=== PATIENT | male | born 1940 | race Caucasian/White ===

== ENCOUNTER 2019-09-19 10:18 | Outpatient (CLI) | payer MEDICARE, SELFPAY ==
--- NOTE | 2019-09-19 11:16 | ECG_ITS ---
Measurements Intervals [place] Rate: 90 P: 43 WV: 129 QRS: -8 QRSD: 137 T: 12 QT: 395 QTc: 484 SINUS RHYTHM RIGHT BUNDLE BRANCH BLOCK [120+ ms QRS DURATION, UPRIGHT V1, 40+ ms S IN I/aVL/V4/V5/V6] MINIMAL VOLTAGE CRITERIA FOR LVH, CONSIDER NORMAL VARIANT [MEETS CRITERIA IN ONE OF: R(aVL), S(V1), R(V5), R(V5/V6)+S(V1)] Compared to ECG 04/19/2019 14:12:57 No significant changes Electronically Signed On 09-19-2019 17:28:46 COMPLIANCE ANALYST by Kody Medley M.D. [id number]
[2019-09-19 11:23] LABS: Basophils % 0.2 %; Eosinophils # 0.1 10^3/uL (0.0-0.8); Eosinophils % 0.8 %; Hematocrit 42.6 % (42.0-52.0); Hemoglobin 13.3 g/dL (11.7-16.6); Lymphocytes # 1.1 10^3/uL (0.8-4.8); Lymphocytes % 17.7 %; Mean Corpuscular HGB Conc 31.2 g/dL (30.0-36.0); Mean Corpuscular Hemoglobin 29.3 pg (28.0-34.0); Mean Corpuscular Volume 93.8 fL (80-94); Mean Platelet Volume 10.6 fL (7.4-10.4); Monocytes # 0.4 10^3/uL (0.2-0.9); Monocytes % 6.7 %; Neutrophils # 4.7 10^3/uL (1.8-7.7); Neutrophils % 74.3 %; Nucleated Red Blood Cells % 0 %; Platelet Count 213 10^3/cmm (130-400); Red Blood Count 4.54 10^6/uL (4.1-5.3); White Blood Count 6.3 10^3/uL (4.0-10.0)
== END 2019-09-19 10:19 | disposition home or self-care (01) ==
LOC: RT 10:25
PROVIDERS: Visit Provider Specialist
DX: Z01.810 Encounter for preprocedural cardiovascular examination (principal); I45.10 Unspecified right bundle-branch block
CPT/HCPCS: 36415; 85025; 93005

== ENCOUNTER 2019-10-06 10:26 | Outpatient (REF) | payer MEDICARE, SELFPAY | END 2019-10-06 10:27 | disposition home or self-care (01) | LOC: LAB 10:26 | PROVIDERS: Visit Provider Specialist | DX: Z76.89 Persons encountering health services in other specified circumstances (principal) ==

== ENCOUNTER 2020-01-16 13:13 | Emergency (ER) | payer MEDICARE, SELFPAY ==
[2020-01-16] VITALS (7 sets, daily range): BP systolic 94–155; BP diastolic 57–94; PULSE 85–103; RESP 14–22; TEMP 36.6; O2SAT 97–98; BMI 21.5
--- NOTE | 2020-01-16 13:22 | XR_ITS ---
WS: [id number] Portable AP upright chest, 01/16/2020 Clinical Data: weakness Comparison: PA chest, 10/07/2011. Findings: No nodules, masses or effusions are seen. The heart is normal. The pulmonary vascularity is not increased. No pneumonia or pneumothorax is seen. The thoracic aorta shows tortuosity. XR/XR chest 1V portable [id number] Impression: Atherosclerosis.
--- NOTE | 2020-01-16 13:23 | ECG_ITS ---
Measurements Intervals [place] Rate: 97 P: 36 TN: 152 QRS: -12 QRSD: 83 T: 31 QT: 350 QTc: 446 SINUS RHYTHM MINIMAL VOLTAGE CRITERIA FOR LVH, CONSIDER NORMAL VARIANT NONSPECIFIC T-WAVE ABNORMALITY Compared to ECG 09/19/2019 11:18:25 T-wave abnormality now present Right bundle-branch block no longer present Electronically Signed On 01-16-2020 19:42:41 CDT by Laura Mancia M.D. [id number]
[2020-01-16 13:41] LABS: Basophils % 0.2 %; Eosinophils # 0.1 10^3/uL (0.0-0.8); Eosinophils % 1.2 %; Hematocrit 40.5 % (42.0-52.0); Hemoglobin 12.9 g/dL (11.7-16.6); Lymphocytes # 0.8 10^3/uL (0.8-4.8); Lymphocytes % 13.9 %; Mean Corpuscular HGB Conc 31.9 g/dL (30.0-36.0); Mean Corpuscular Hemoglobin 29.3 pg (28.0-34.0); Mean Corpuscular Volume 91.8 fL (80-94); Monocytes # 0.4 10^3/uL (0.2-0.9); Monocytes % 7.4 %; Neutrophils # 4.4 10^3/uL (1.8-7.7); Neutrophils % 77.1 %; Nucleated Red Blood Cells % 0 %; Platelet Count 197 10^3/cmm (130-400); Red Blood Count 4.41 10^6/uL (4.1-5.3); Red Cell Distribution Width 12.9 % (12.1-15.1); White Blood Count 5.7 10^3/uL (4.0-10.0)
[2020-01-16] MEDS: sodium chloride 0.9% 500 ML 999 ML IV (13:52)
[2020-01-16 13:59] LABS: Alanine Aminotransferase 13 U/L (0-41); Albumin Level 4.4 g/dL (3.5-5.2); Alkaline Phosphatase 69 IU/L (40-130); Anion Gap 16.4 (5-19); Aspartate Amino Transferase 14 U/L (0-40); Blood Urea Nitrogen 32 mg/dL (8-23); Carbon Dioxide 23 mmol/L (22-29); Chloride 105 mmol/L (98-107); Globulin 2.3 g/dL (1.3-4.6); Glucose 156 mg/dL (65-115); Osmolality Calculated 290 mOsm/kg (285-295); Potassium 4.4 mmol/L (3.5-5.1); Sodium 140 mmol/L (136-145); Total Bilirubin 0.3 mg/dL (0.15-1.2); Total Protein 6.7 g/dL (6.6-8.7)
[2020-01-16 14:01] LABS: Troponin(5th) Baseline 12 ng/mL (0-15)
[2020-01-16 14:11] LABS: Glucose Point of Care 132 mg/dL (70-110)
--- NOTE | 2020-01-16 14:22 | W.ED.GENADLT ---
HPI - General Adult General: Chief complaint: General Medical Stated complaint: dizzy,weak Time Seen by Provider: 01/16/20 13:22 History of Present Illness: HPI narrative: Patient is a 79-year-old gentleman presenting with weakness and dizziness. He says he has been having these problems for several months but today he had driven his car down here from [place] and did not feel like he can drive back due to the weakness and dizziness. He has been seeing his primary care physician, Dr. Starks, for this and has had a Holter monitor. She also gave him some medicine for anxiety because his several months ago as well. The symptoms are much worse with movement particularly standing. He feels shaky. He denies specific problems with coordination. He notes very blurry vision at times to the point where he cannot see the doorknob on the door. The symptoms are intermittent. He denies fever, cough, chest pain, shortness of breath. His appetite has been normal. He denies weight loss. He denies constipation or diarrhea. He denies urinary symptoms or hematuria. He takes medications for blood pressure. Onset (ago): month(s) (3) Associated symptoms: Reports nausea; Deny chest pain, dyspnea, headache(s), palpitations or vomiting Review of Systems General: Reports: 10 or more systems reviewed and unremarkable except in HPI and below Const: Denies: fever(s), chills, change in appetite, change in weight or night sweats Eyes: Reports: change in vision and blurry vision ENMT: Denies: throat pain or odynophagia Card: Reports: lightheadedness and pre-syncope; Denies: chest pain, palpitations, irregular heart rhythm, edema or swelling of feet/ankles Resp: Denies: dyspnea, productive cough or non-productive cough GI: Reports: nausea; Denies: abdominal pain, vomiting, diarrhea or constipation : Denies: difficulty urinating, dysuria or hematuria Musc: Denies: neck pain or back pain Skin/Breast: Reports: changing lesions (moles on his chest that have been there for years - were sore yesterday) Neuro: Denies: headache(s), numbness in extremities, weakness in extremities, lack of coordination or difficulty walking Psych: Reports: other ( a few months ago ) [facility] ED PFSH: Medical History HTN (hypertension) Hyperlipidemia Surgical History S/P cataract surgery S/P skin and subcutaneous tissue surgery Skin cancer on nose S/P vasectomy Family History Mother Hypertension Father Cancer COLON CA Social History Smoking and tobacco status: former smoker Alcohol intake: never Physical Exam Const: COMMON NORMALS: no acute distress, average body habitus, patient oriented x3, no limitations, healthy appearing, alert and well nourished OTHER: shaky with movement or effort of standing HENMT: COMMON NORMALS: normocephalic HEAD & SCALP: normal to inspection and normocephalic FACE & SINUS: normal facial exam Eye: COMMON NORMALS: Equal, round and reactive pupils present, EOMs intact bilaterally and normal visual may by confrontation PUPIL: Yes Equal, round and reactive pupils present Neck/C-Spine: COMMON NORMALS: full ROM, supple, no meningeal signs and no JVD Chest: COMMONS NORMALS: normal inspection of the chest Resp: COMMON NORMALS: normal respiratory effort, No retractions, No use of accessory muscles and clear to auscultation bilaterally AUSCULTATION: clear to auscultation bilaterally Cardio: COMMON NORMALS: no JVD, regular rate, regular rhythm, No murmurs present (Cardio) and Peripheral pulses 2+ throughout RATE: regular rate RHYTHM: regular rhythm PERIPHERAL PULSES: Peripheral pulses 2+ throughout GI: COMMON NORMALS: Normal to inspection, nondistended, normoactive bowel sounds present, Soft to palpation, non-tender, No hepatosplenomegaly present, no masses and no bruits PALPATION: Yes Soft to palpation and Yes No hepatosplenomegaly present Back/Pelvis: COMMON NORMALS: thoracic and lumbar spine normal to inspection Neuro: COMMON NORMALS: patient oriented x3, CN's II-XII intact bilaterally, moves all extremities, no focal motor deficits, no sensory deficits noted and gait normal SENSORIUM/ORIENTATION: Yes alert MENINGEAL SIGNS: Yes no meningeal signs COORDINATION/BALANCE: sways with eyes open, does not sway with eyes open and Romberg test negative SPEECH: speech normal GAIT: Yes Normal gait present COORDINATION: does not sway with eyes open Skin: COMMON NORMALS: no rashes or lesions noted GENERAL SKIN EXAM: no rashes or lesions noted Course ED course: Positive orthostatics initially - resolved after 1500 mL IV fluid. He also thought that meclizine may have helped. Work up otherwise benign in the ED. Neuro exam benign. He was no longer symptomatic after the fluids and felt safe to go home. Outpatient follow up with Dr. Starks. He has an appointment next month but I asked him to check in with her tomorrow. Vital Signs: Vital signs: Vital Signs Temperature 97.9 F 01/16/20 13:18 Pulse Rate 85 01/16/20 19:14 Respiratory Rate 14 01/16/20 19:14 Blood Pressure 138/94 01/16/20 19:14 Pulse Oximetry 98 01/16/20 19:14 MDM - General Adult Lab Data: Labs: Lab Results 01/16/20 01/16/20 01/16/20 Range/Units 13:30 13:30 13:30 WBC 5.7 (4.0-10.0) 10^3/ uL RBC 4.41 (4.1-5.3) 10^6/u L Hgb 12.9 (11.7-16.6) g/dL Hct 40.5 L (42.0-52.0) % MCV 91.8 (80-94) fL MCH 29.3 (28.0-34.0) pg MCHC 31.9 (30.0-36.0) g/dL RDW 12.9 (12.1-15.1) % Plt Count 197 (130-400) 10^3/c mm MPV 11.0 H (7.4-10.4) fL Neut % (Auto) 77.1 % Lymph % (Auto) 13.9 % Webster % (Auto) 7.4 % Eos % (Auto) 1.2 % Baso % (Auto) 0.2 % Neut # (Auto) 4.4 (1.8-7.7) 10^3/u L Lymph # (Auto) 0.8 (0.8-4.8) 10^3/u L Webster # (Auto) 0.4 (0.2-0.9) 10^3/u L Eos # (Auto) 0.1 (0.0-0.8) 10^3/u L Baso # (Auto) 0.0 (0.0-0.1) 10^3/u L Nucleated RBC % (a uto) 0 % Nucleated RBCs # 0.0 /100WBC Sodium 140 (136-145) mmol/L Potassium 4.4 (3.5-5.1) mmol/L Chloride 105 (98-107) mmol/L Carbon Dioxide 23 (22-29) mmol/L Anion Gap 16.4 (5-19) BUN 32 H (8-23) mg/dL Creatinine 1.4 H (0.7-1.2) mg/dL Glucose 156 H (65-115) mg/dL POC Glucose (70-110) mg/dL Calculated Osmolal ity 290 (285-295) mOsm/k g Calcium 9.0 (8.5-10.5) mg/dL Total Bilirubin 0.3 (0.15-1.2) mg/dL AST 14 (0-40) U/L ALT 13 (0-41) U/L Alkaline Phosphata se 69 (40-130) IU/L Troponin T Baselin e 12 (0-15) ng/mL Troponin T 120 Min angeline (0-15) ng/mL Delta Troponin T (0-10) ABS# Total Protein 6.7 (6.6-8.7) g/dL Albumin 4.4 (3.5-5.2) g/dL Globulin 2.3 (1.3-4.6) g/dL Urine Color (Yellow) Urine Appearance (CLEAR) Urine pH (5-7) Ur Specific Gravit y (1.005-1.030) Urine Protein (Negative) Urine Glucose (UA) (Normal) Urine Ketones (Negative) Urine Blood (Negative) Urine Nitrate (Negative) Urine Bilirubin (NEGATIVE) Prot Sulfosalicyli c Acd (Negative) Urine Urobilinogen (Negative) mg/dL Ur Leukocyte Alyse ase (Negative) 01/16/20 01/16/20 01/16/20 Range/Units 13:55 15:22 15:25 WBC (4.0-10.0) 10^3/ uL RBC (4.1-5.3) 10^6/u L Hgb (11.7-16.6) g/dL Hct (42.0-52.0) % MCV (80-94) fL MCH (28.0-34.0) pg MCHC (30.0-36.0) g/dL RDW (12.1-15.1) % Plt Count (130-400) 10^3/c mm MPV (7.4-10.4) fL Neut % (Auto) % Lymph % (Auto) % Webster % (Auto) % Eos % (Auto) % Baso % (Auto) % Neut # (Auto) (1.8-7.7) 10^3/u L Lymph # (Auto) (0.8-4.8) 10^3/u L Webster # (Auto) (0.2-0.9) 10^3/u L Eos # (Auto) (0.0-0.8) 10^3/u L Baso # (Auto) (0.0-0.1) 10^3/u L Nucleated RBC % (a uto) % Nucleated RBCs # /100WBC Sodium (136-145) mmol/L Potassium (3.5-5.1) mmol/L Chloride (98-107) mmol/L Carbon Dioxide (22-29) mmol/L Anion Gap (5-19) BUN (8-23) mg/dL Creatinine (0.7-1.2) mg/dL Glucose (65-115) mg/dL POC Glucose 132 (70-110) mg/dL Calculated Osmolal ity (285-295) mOsm/k g Calcium (8.5-10.5) mg/dL Total Bilirubin (0.15-1.2) mg/dL AST (0-40) U/L ALT (0-41) U/L Alkaline Phosphata se (40-130) IU/L Troponin T Baselin e (0-15) ng/mL Troponin T 120 Min angeline 11.00 (0-15) ng/mL Delta Troponin T -1.00 L (0-10) ABS# Total Protein (6.6-8.7) g/dL Albumin (3.5-5.2) g/dL Globulin (1.3-4.6) g/dL Urine Color Yellow (Yellow) Urine Appearance Clear (CLEAR) Urine pH 5 (5-7) Ur Specific Gravit y 1.020 (1.005-1.030) Urine Protein Neg (Negative) Urine Glucose (UA) Norm (Normal) Urine Ketones Negative (Negative) Urine Blood Neg (Negative) Urine Nitrate Negative (Negative) Urine Bilirubin 1+ H (NEGATIVE) Prot Sulfosalicyli c Acd Negative (Negative) Urine Urobilinogen Norm (Negative) mg/dL Ur Leukocyte Alyse ase Negative (Negative) EKG Data^: EKG 1: EKG interpretation date: 01/16/20 EKG interpretation time: 13:45 Interpretation: NSR 97, LVH, non sepcific T wave changes. Normal intervals Computer generated interpretation: Chest X-Ray 01/16/20 13:22 Impression: Atherosclerosis. Head CT 01/16/20 15:26 IMPRESSION: 1. No acute intracranial abnormality. 2. Moderate microangiopathy. Radiation Dose CTDIVOL = (mGy): DLP = 840.02 (mGy-cm) EKG 2: EKG interpretation date: 01/16/20 EKG interpretation time: 17:00 Interpretation: NSR 87, normal intervals, axis. high voltage in the precordial leads Computer generated interpretation: Chest X-Ray 01/16/20 13:22 Impression: Atherosclerosis. Head CT 01/16/20 15:26 IMPRESSION: 1. No acute intracranial abnormality. 2. Moderate microangiopathy. Radiation Dose CTDIVOL = (mGy): DLP = 840.02 (mGy-cm) Discharge Plan Discharge Patient Disposition: Home, Self-Care Clinical Impression: Primary orthostatic hypotension, Acute dehydration Condition: Stable Prescriptions: No Action atorvastatin 40 mg tablet 40 mg PO DAILY RF: 0 metoprolol tartrate 25 mg tablet 25 mg PO BID RF: 0 lisinopril 20 mg tablet 10 mg PO DAILY RF: 0 prazosin 1 mg capsule 1 mg PO BEDTIME RF: 0 aspirin 325 mg Tablet 325 mg PO PRN RF: 0 Celexa 10 mg Tablet 10 mg PO DAILY RF: 0 Flomax 0.4 mg Capsule 0.4 mg PO DAILY RF: 0 Prilosec OTC 20 mg Tablet,Delayed Release (Dr/Ec) 40 mg PO BEDTIME RF: 0 Stool Softener 1 tab PO PRN RF: 0 fiber 1 tab PO DAILY PRN (Reason: unknown) RF: 0 Discharge Orders: Discharge Order (Routine); Ordered 01/16/20 Ordered By: Lay Lewis Referrals: Mamta Nascimento MD [Primary Care Provider] - Discharge Diet: Usual diet Discharge Activity: Resume usual activity Patient Instructions: Dehydration (ED) Activity Restrictions/Additional Instructions: Drink plenty of fluids. Get up slowly from laying down or sitting. Return to the ED if feeling worse in any way. Discharge Date/Time: 01/16/20 19:15 Coding Level of Care Code ED Chief Drafter for Chg Fwd Exam Comprehensive
[2020-01-16] MEDS: sodium chloride 0.9% 1,000 ML 999 ML IV (14:42)
[2020-01-16] MEDS: meclizine 25 mg tablet PO (14:42)
--- NOTE | 2020-01-16 15:26 | CTR_ITS ---
PROCEDURE INFORMATION: Exam: CT Head Without Contrast Exam date and time: 01/16/2020 4:00 PM Age: 79 years old Clinical indication: Dizziness TECHNIQUE: Imaging protocol: Computed tomography of the head without contrast. Radiation optimization: All CT scans at this facility use at least one of these dose optimization techniques: automated exposure control; mA and/or kV adjustment per patient size (includes targeted exams where dose is matched to clinical indication); or iterative reconstruction. COMPARISON: No relevant prior studies available. RADIATION DOSE METRICS: Total DLP: 840.02 mGy-cm FINDINGS: Brain: Moderate diffuse cortical volume loss. Moderate patchy hypodensities in supratentorial periventricular and subcortical white matter. No intracranial hemorrhage. Ventricles: Normal. No ventriculomegaly. Bones/joints: Unremarkable. No acute fracture. Sinuses: Visualized sinuses are unremarkable. No fluid levels. Mastoid air cells: Visualized mastoid air cells are well aerated. Soft tissues: Unremarkable. Vasculature: No hyperdense artery. CT/CT head wo con* [id number] IMPRESSION: 1. No acute intracranial abnormality. 2. Moderate microangiopathy. Radiation Dose CTDIVOL = (mGy): DLP = 840.02 (mGy-cm)
[2020-01-16 15:45] LABS: Add Urine Microscopic? NO
[2020-01-16 16:09] LABS: Urine Appearance Clear (CLEAR); Urine Color Yellow (Yellow); pH Urine 5 (5-7)
[2020-01-16 16:10] LABS: Bilirubin Urine 1+ (NEGATIVE); Blood Urine Neg (Negative); Glucose Urine UA Norm (Normal); Ketones Urine Negative (Negative); Leukocyte Esterase Urine Negative (Negative); Nitrate Urine Negative (Negative); Protein Urine Neg (Negative); Sulfosalicylic Acid Urine Negative (Negative); Urobilinogen Urine Norm (Negative)
--- NOTE | 2020-01-16 19:23 | ECG_ITS ---
Measurements Intervals [place] Rate: 87 P: 50 [place]: 164 QRS: -4 QRSD: 84 T: 28 QT: 367 QTc: 443 SINUS RHYTHM Compared to ECG 09/19/2019 11:18:25 Right bundle-branch block no longer present Electronically Signed On 01-16-2020 20:16:04 CDT by Laura Mancia M.D. [id number]
== END 2020-01-16 19:15 | disposition home or self-care (01) ==
PROVIDERS: Emergency Provider Emergency Medicine; PCP Internal Medicine
DX: I95.1 Orthostatic hypotension (principal); E86.0 Dehydration; Z79.82 Long term (current) use of aspirin; I10 Essential (primary) hypertension; E78.5 Hyperlipidemia, unspecified; Z87.891 Personal history of nicotine dependence
CPT/HCPCS: 12345; 36415; 36416; 70450; 71045; 80053; 81003; 82962; 84484; 85025; 93005; 96360; 99283; 99284; J7030; J7040; J8597

== ENCOUNTER 2021-07-01 15:13 | Outpatient (CLI) | payer MEDICARE, SELFPAY ==
--- NOTE | 2021-07-01 15:18 | US_ITS ---
WS: [id number] ULTRASOUND RENAL TECHNIQUE: Ultrasound examination of both kidneys. CLINICAL INFORMATION: CKD STAGE III (MODERATE) COMPARISON: None. FINDINGS: RIGHT: Right simple renal cyst measuring 1.5 x 1.5 x 0.8 cm. Right kidney is normal in size and appearance. Echogenicity: Normal.. Hydronephrosis: None. Perinephric fluid: None. Right kidney measures: 9.1 cm x 5.5 cm x 4.6 cm. LEFT: A few simple left renal cysts largest measuring 2.8 x 1.9 x 2.2 cm Left kidney is normal in size and appearance. Echogenicity: Normal. Hydronephrosis: None. Perinephric fluid: None. Left kidney measures: 9.6 cm x 4.8 cm x 4.3 cm. Normal visualized aorta. US/US renal BI* [id number] IMPRESSION: 1. Bilateral simple renal cysts similar in appearance to 2019. 2. No hydronephrosis in either kidney.
--- NOTE | 2021-07-01 15:18 | USCV_ITS ---
Law Frederick Age: 81 Gender: M : 1940 Exam Date: 07/01/2021 15:40 Ordering Phys: Mamta Nascimento MD Technologist: Exam Location: [facility] [place] Indication: TIA Risk Factors: None Previous Vascular Surgery: Right Brachial BP: / Left Brachial BP: / Right Left Velocity (cm/s) Spectral Plaque Velocity (cm/s) Spectral Plaque Syst/Diast Broadening Syst/Diast Broadening 76.10/ 14.30 Prox CCA 57.90 / 12.00 78.30/ 14.30 Mid CCA 70.60 / 13.50 83.80/ 23.20 Distal CCA 73.80 / 19.00 43.20/ 12.00 Prox ICA 62.50 / 10.40 43.90/ 12.00 Mid ICA 63.40 / 19.90 39.20/ 9.30 Distal ICA 81.40 / 23.70 87.10 ECA 112.90 0.52 ICA/CCA 1.10 Antegrade Vertebral Antegrade 38.60/ 10.60 cm/s 56.80/ 11.40 cm/s Tri Subclavian Tri 71.20 80.40 CONCLUSIONS Right ICA stenosis <50%. Mild atheromatous plaque right carotid bulb/ICA. Left ICA stenosis <50%. Moderate calcified atheromatous plaque left carotid bulb/ICA. Normal antegrade Doppler flow noted in the left vertebral artery. Normal antegrade Doppler flow noted in the left vertebral artery. Frandy Cadena MD (Electronically Signed) Final Date: 02 July 2021 10:10 S
== END 2021-07-01 15:14 | disposition home or self-care (01) ==
LOC: RAD 15:17
PROVIDERS: PCP Internal Medicine; Visit Provider Internal Medicine
DX: N18.30 Chronic kidney disease, stage 3 unspecified (principal); Q61.02 Congenital multiple renal cysts; G45.9 Transient cerebral ischemic attack, unspecified
CPT/HCPCS: 76770; 93880

== ENCOUNTER 2023-03-09 08:10 | Emergency (ER) | payer MEDICARE, SELFPAY ==
[2023-03-09 08:53] VITALS: BP 149/85; PULSE 88; RESP 16; TEMP 36.7; O2SAT 97; BMI 22.2
[2023-03-09 08:56] VITALS: BP 182/90; PULSE 86; RESP 18; TEMP 36.9; O2SAT 96
--- NOTE | 2023-03-09 09:35 | ED_ITS ---
HPI - Extremity Problem General: Chief complaint: Extremity Problem,Nontraumatic Stated complaint: complication after blood draw Time Seen by Provider: 03/09/23 08:16 Source: patient Mode of arrival: ambulatory Limitations: no limitations History of Present Illness: Patient is a very nice 83-year-old male who presents to ED today with swelling to his right AC space following a vena puncture. Patient states he was at [facility] earlier today for routine blood draw. He states they attempted a total of 3 times from his right AC space. He states when he left their office he was not having any swelling but noticed about 30 mins later while running errands that he had developed a hematoma to the space. MD Complaint: extremity pain Onset (ago): hour(s) Pain Consistency: constant Location: right and upper extremity Radiation: none Relieving factors: nothing Exacerbating factors: nothing Associated symptoms: Reports no associated symptoms; Deny chest pain or fever(s) Context: recent surgery/procedure (venipuncture) Review of Systems Const: Denies: fever(s), chills, body aches, fatigue or malaise Card: Denies: chest pain Resp: Denies: dyspnea Musc: Reports: extremity swelling and joint swelling Skin/Breast: Reports: other (hematoma R AC) Neuro: Denies: numbness in extremities, weakness in extremities or sensory andrea nges [facility] ED PFSH: Medical History HTN (hypertension) Hyperlipidemia Surgical History S/P cataract surgery S/P skin and subcutaneous tissue surgery Skin cancer on nose S/P vasectomy Family History Mother Hypertension Father Cancer COLON CA Social History Smoking and tobacco status: former smoker Alcohol intake: never Substance/Drug Use: never Physical Exam Const: COMMON NORMALS: no acute distress, average body habitus, patient oriented x3, no limitations, healthy appearing, alert and well nourished Resp: COMMON NORMALS: normal respiratory effort and clear to auscultation bilaterally AUSCULTATION: clear to auscultation bilaterally Cardio: COMMON NORMALS: regular rate and regular rhythm RATE: regular rate RHYTHM: regular rhythm Extremity: COMMON NORMALS: full ROM and capillary refill normal GENERAL: Yes normal exam except as noted RIGHT UPPER EXTREMITY: Yes elbow joint OTHER: patient has a hematoma to site of recent venipuncture near R AC; no palpable cords; no swelling elsewhere on R UE; he has good radial pulse, cap refill, and sensation present Neuro: COMMON NORMALS: patient oriented x3, moves all extremities, no focal motor deficits and no sensory deficits noted SENSORIUM/ORIENTATION: Yes alert Skin: NARRATIVE SKIN EXAM: see above Course Vital Signs: Vital signs: Vital Signs Temperature 98.4 F 03/09/23 09:59 Pulse Rate 86 03/09/23 09:59 Respiratory Rate 18 03/09/23 09:59 Blood Pressure 182/90 03/09/23 09:59 Pulse Oximetry 96 03/09/23 09:59 Oxygen Delivery Me thod Room Air 03/09/23 08:56 MDM - Extremity (Nontraumatic) Medical Decision Making Patient here for a hematoma following venous puncture approximately 1 hour ago while at his primary care office. I have zero concern at this time for DVT, superficial phlebitis, pseudoaneurysm, compartment syndrome, or any other emergent condition. Will PATRIC wrap site for compression. Discussed ice and elevation. Return to ED precautions given. Discharge Plan Discharge Patient Disposition: Home Clinical Impression: Hematoma Condition: Stable Prescriptions: No Action atorvastatin 40 mg tablet 40 mg PO DAILY lisinopril 20 mg tablet 10 mg PO DAILY triamcinolone acetonide 0.1 % ointment topical ketoconazole 2 % cream 1 applic topical DAILY Qty: 60 3RF Rx Instructions: Apply to affected areas in skin folds once a day x 3 weeks then prn for flares aspirin 81 mg tablet,delayed release (DR/EC) 81 mg PO DAILY (DME) Pressure Reducing Cushion See Rx Instructions .Route .MEDSUPPLY Qty: 1 0RF Rx Instructions: As directed Stool Softener 1 tab PO PRN Discharge Orders: Discharge ED (Routine); Ordered 03/09/23 Ordered By: Melissa Moura Referrals: Mamta Nascimento MD [Primary Care Provider] - Patient Instructions: Hematoma (ED) Activity Restrictions/Additional Instructions: As we discussed we will place an Patric wrap on your hematoma for compression. You need to ice area of swelling for 20 to 30 minutes every 1-2 hours. Do not apply ice directly to skin. Need to elevate the extremity as much as possible (above the level of your heart). If area continues to swell despite above therapies you may follow-up with your primary care provider or return to the emergency department. 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
[2023-03-09 09:52] VITALS: PULSE 86
[2023-03-09 09:59] VITALS: BP 182/90; PULSE 86; RESP 18; TEMP 36.9; O2SAT 96
== END 2023-03-09 10:11 | disposition home or self-care (01) ==
PROVIDERS: Emergency Provider Physician Assistant; PCP Internal Medicine
DX: S40.021A Contusion of right upper arm, initial encounter (principal); I10 Essential (primary) hypertension; E78.5 Hyperlipidemia, unspecified; Z79.82 Long term (current) use of aspirin; Z79.899 Other long term (current) drug therapy; Z87.891 Personal history of nicotine dependence; X58.XXXA Exposure to other specified factors, initial encounter
CPT/HCPCS: 99282

== ENCOUNTER 2024-02-26 06:23 | Outpatient (CLI) | payer MEDICARE, SELFPAY ==
--- NOTE | 2024-02-26 07:00 | USCV_ITS ---
Law Frederick Age: 84 Gender: M : 1940 Exam Date: 02/26/2024 06:42 Ordering Phys: Mamta Nascimento MD Technologist: LIAN Exam Location: [facility] [place] Indication: DIZZINESS, EVAL FOR STENOSIS Risk Factors: Previous Vascular Surgery: Right Brachial BP: / Left Brachial BP: / Right Left Velocity (cm/s) Spectral Plaque Velocity (cm/s) Spectral Plaque Syst/Diast Broadening Syst/Diast Broadening 82.50/ 15.00 Prox CCA 90.70 / 16.30 99.00/ 17.70 Mid CCA 88.10 / 17.20 82.30/ 14.40 Distal CCA 85.20 / 17.00 54.50/ 9.90 Prox ICA 87.40 / 18.10 71.50/ 20.90 Mid ICA 84.50 / 21.80 90.80/ 21.30 Distal ICA 67.30 / 18.70 104.00 ECA 86.50 1.10 ICA/CCA 1.00 Antegrade Vertebral Antegrade 53.50/ 10.30 cm/s 42.60/ 9.00 cm/s Tri Subclavian Tri 74.20 101.0 0 FINDINGS Comparison:. 07/01/21 No significant elevation of systolic or diastolic velocities. Waveforms are normal. Minimal carotid atherosclerosis. Antegrade vertebral arteries. CONCLUSIONS Bilateral ICA stenosis less than 50%. No interval change in stenosis since prior exam. Dr. Frances Mendez DO (Electronically Signed) Final Date: 26 February 2024 09:40 S
== END 2024-02-26 06:24 | disposition home or self-care (01) ==
LOC: RAD 06:23
PROVIDERS: PCP Internal Medicine; Visit Provider Internal Medicine
DX: I65.23 Occlusion and stenosis of bilateral carotid arteries (principal)
CPT/HCPCS: 93880

== ENCOUNTER 2024-03-15 07:49 | Outpatient (CLI) | payer MEDICARE, SELFPAY ==
--- NOTE | 2024-03-15 | ECG_ITS ---
[facility] Test Date: 2024-03-15 Pat Name: Law Frederick Department: Room: Gender: Male Primary Care Nurse Practitioner: : 1940 Requested By: Mamta Mckeon Order Number: [id number] Jose Roberto MD: Jia Bonner M.D. Interpretive Statements NAME OF STUDY: LEXISCAN SESTAMIBI STRESS TEST INDICATION: Chest Pain, PROCEDURE: At the baseline, the EKG revealed normal sinus rhythm with right bundle branch block pattern.. The baseline heart was 93 bpm with a blood pressue of 169/96 mm of Hg Lexiscan was infused over a period of 20 seconds. A total of 0.4 milligrams of Lexiscan was infused. The stress phase was continued for a total of 5 minutes. Heart rate at the end of the stress phase was 104 bpm with a blood pressure 144/69 mm of Hg. The EKG at the peak infusion revealed no significant changes. Sestamibi was injected 20 seconds after the Lexiscan infusion. Heart rate at the end of the recovery phase was 104 bpm with a blood pressure of 160/80 mm of Hg. CONCLUSION: 1. No significant EKG changes with the LexiScan infusion 2. No LexiScan induced chest pain or cardiac arrhythmia 3. Normal blood pressure and heart rate response 4. Sestamibi/sestamibi perfusion scan pending; see separate report. Electronically Signed On 03-17-2024 23:02:38 CDT by Jia Bonner M.D. [id number]
[2024-03-15 08:07] VITALS: BMI 22.2
--- NOTE | 2024-03-15 08:26 | NMCV_ITS ---
NM ximena perf SPECT r/s* [id number] Law Frederick Age: 84 Gender: M : 1940 Exam Date: 03/15/2024 08:41 Ordering Phys: Mamta Nascimento MD Technologist: ADELINA Ruvalcaba Exam Location: [facility] Indications: CP STRESS TEST Please see separate stress test report in [facility] for full findings IMAGE PROTOCOL Rest/Stress 1 Lexiscan Day Radiopharmaceutical Dose (mCi) Administration Site Administered by Rest: Tc-99m 10.8 IV ADELINA Ruvalcaba Sestamibi Stress:Tc-99m 32.6 IV ADELINA Ruvalcaba Sestamibi Rest: 15-Mar-2024 60 Discovery 630 Stress: 15-Mar-2024 30 Discovery 630 0.4mg Lexiscan. Images obtained in supine and prone position. SPECT RESULTS Technical Quality: Excellent Raw Data Analysis: Normal Image Corrections: No attenuation or motion correction applied Summed Stress Score: 5 Summed Rest Score: 1 Summed Difference Score: 4 PERFUSION FINDINGS Small to moderate area of moderately decreased tracer uptake involving the basal and mid inferior wall region. Significant reversibility was noted in this region with the supine imaging. However with the prone imaging, no significant reversibility was noted. FUNCTIONAL RESULTS (calculated via Gated SPECT) Stress Image LV EF (%): 60 Stress EDV (mL):94 TID: 0.9 Stress ESV (mL):38 FUNCTIONAL FINDINGS: Segmental wall motion analysis revealing no gross wall motion abnormalities IMPRESSIONS 1. Myocardial perfusion imaging revealing a small to moderate area of reversible defect in the inferior wall region suggesting ischemia in the distribution of the right coronary artery. However because of inconsistency, the relative questionable the reliability is questionable. Clinical correlation is recommended 2. Normal LV ejection fraction of 60%. 3. LV wall motion analysis revealing no gross wall motion abnormalities. 4. , Normal LV volume No similar previous studies are available for comparison Dr Jia Bonner MD [facility] (Electronically Signed) Final Date: 15 March 2024 12:45 S
[2024-03-15] MEDS: regadenoson 0.4 Mg/5 ml Syringe IVP (09:20)
[2024-03-15 10:05] VITALS: BP 160/80; PULSE 66
== END 2024-03-15 07:50 | disposition home or self-care (01) ==
PROVIDERS: PCP Internal Medicine; Visit Provider Internal Medicine
DX: R07.9 Chest pain, unspecified (principal)
CPT/HCPCS: 36415; 78452; 93017; 96375; A9500; J2785

== ENCOUNTER → 2024-06-02 09:59 | Outpatient (BNVA) | payer MEDICARE, SELFPAY | PROVIDERS: PCP Internal Medicine; Visit Provider Internal Medicine Cardiovascular Disease | DX: R94.31 Abnormal electrocardiogram [ECG] [EKG] (principal); R94.39 Abnormal result of other cardiovascular function study; I10 Essential (primary) hypertension; E78.5 Hyperlipidemia, unspecified; R00.2 Palpitations; Z87.891 Personal history of nicotine dependence | CPT/HCPCS: 99204 ==

== ENCOUNTER 2024-07-04 12:50 | Outpatient (CLI) | payer MEDICARE, SELFPAY ==
--- NOTE | 2024-07-04 13:15 | USCV_ITS ---
Law Frederick Age: 84 Gender: M : 1940 Exam Date: 07/04/2024 13:05 Ordering Phys: Jia Bonner MD ([email or web address]) Technologist: CT [place]am [place] [facility] [place]ication: BP: 114 / 79 HR: 84 Rhythm: Sinus Technical Quality: Adequate MEASUREMENTS (Male / Female) Normal Values 2D ECHO LVOT Diameter 2.0 cm LV Ejection Fraction MOD 4C 61.3 % LV Ejection Fraction MOD 2C 56.8 % LV Ejection Fraction 2C AL 57.9 % LA Diameter 2.7 cm RA Systolic Volume 4C AL 32.5 ml RA Systolic Volume 4C MOD 31.1 ml LA Sys Volume AL 31.3 cm cubed LA Sys Volume Index AL 16.8 cm cubed/m squared Aorta at Sinotubular Diameter 2.4 cm IVC Diameter 1.9 cm M-MODE LA Ao Ratio MM 1.0 AV Cusp Separation MM 1.8 cm DOPPLER AV Peak Velocity 128.0 cm/s LVOT Peak Velocity 86.0 cm/s AV Area Cont Eq vti 2.3 cm squared AV Area Cont Eq pk 2.1 cm squared MV Peak Velocity 83.0 cm/s MV Area PHT 4.1 cm squared Mitral E to A Ratio 0.9 TV Peak Velocity 255.0 cm/s TR Peak Velocity 295.0 cm/s TR Peak Gradient 34.8 mmHg TV Peak E Velocity 90.0 cm/s Right Atrial Pressure 3.0 mmHg Pulmonary Artery Systolic Pressu 37.8 mmHg PV Peak Velocity 90.0 cm/s FINDINGS Left Ventricle Normal LV size with a borderline low ejection fraction of 50%. Mild diffuse hypokinesia of the inferolateral wall segment. Right Ventricle The right ventricle is normal in size and function. Right Atrium The right atrium is normal in size. Left Atrium The left atrium is normal in size. Mitral Valve Mild mitral valve regurgitation. Aortic Valve Moderate aortic valve regurgitation. Tricuspid Valve Trace to mild tricuspid valve regurgitation. Estimated pulmonary artery peak systolic pressure 38 mmHg Pulmonic Valve Pulmonic valve not well visualized. Pericardium Normal pericardium without effusion. Aorta Normal ascending aorta dimension. IVC Normal inferior vena cava. CONCLUSIONS Normal LV size with a borderline low ejection fraction of 50%. Mild diffuse hypokinesia of the inferolateral wall segment. Moderate aortic valve regurgitation. Trace to mild tricuspid valve regurgitation. Mild mitral valve regurgitation. Estimated pulmonary artery peak systolic pressure 38 mmHg. There is no pericardial effusion. There are no intracardiac masses. No similar previous studies are available for comparison Dr Jia Bonner MD [facility] (Electronically Signed) Final Date: 05 July 2024 21:04 S
== END 2024-07-04 12:51 | disposition home or self-care (01) ==
LOC: RAD 12:51
PROVIDERS: PCP Internal Medicine; Visit Provider Internal Medicine Cardiovascular Disease
DX: I35.1 Nonrheumatic aortic (valve) insufficiency (principal); R06.09 Other forms of dyspnea
CPT/HCPCS: 93306

== ENCOUNTER 2024-07-14 09:24 | Emergency (ER) | payer MEDICARE, SELFPAY ==
--- NOTE | 2024-07-14 09:25 | XRR_ITS ---
PROCEDURE INFORMATION: Exam: XR Chest Exam date and time: 07/14/2024 9:38 AM Age: 84 years old Clinical indication: Shortness of breath; Additional info: SOB TECHNIQUE: Imaging protocol: Radiologic exam of the chest. Views: 1 view. COMPARISON: CR XR chest 1V portable [id number] 01/16/2020 1:54 PM FINDINGS: Lungs: Unremarkable. No consolidation. Pleural spaces: Unremarkable. No pleural effusion. No pneumothorax. Heart/Mediastinum: Unremarkable. No cardiomegaly. Bones/joints: Unremarkable. XR/XR chest 1V portable [id number] IMPRESSION: No acute findings.
--- NOTE | 2024-07-14 09:25 | ECG_ITS ---
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 Measurements Intervals [place] Rate: 104 P: 54 AK: 170 QRS: -42 QRSD: 140 T: 35 QT: 383 QTc: 506 Interpretive Statements SINUS TACHYCARDIA LEFT AXIS DEVIATION [QRS AXIS < -30] RIGHT BUNDLE BRANCH BLOCK [120+ ms QRS DURATION, UPRIGHT V1, 40+ ms S IN I/aVL/V4/V5/V6] LEFT VENTRICULAR HYPERTROPHY AND ST-T CHANGE [VOLTAGE CRITERIA PLUS ST/T ABNORMALITY] Compared to ECG 01/16/2020 16:56:08 Left-axis deviation now present Right bundle-branch block now present Left ventricular hypertrophy now present ST (T wave) deviation now present Sinus rhythm no longer present Electronically Signed On 07-14-2024 21:16:21 SYSTEM TECHNOLOGIST by Jia Bonner M.D. [email or web address]
[2024-07-14 09:34] VITALS: BP 165/96; PULSE 103; RESP 17; TEMP 36.6; O2SAT 94; BMI 22.2
[2024-07-14 10:02] LABS: Basophils % 0.3 %; Eosinophils # 0.1 10^3/uL (0.0-0.8); Eosinophils % 1.3 %; Hematocrit 44.6 % (37-53); Lymphocytes # 1.2 10^3/uL (0.8-4.8); Mean Corpuscular HGB Conc 32.5 g/dL (30-55); Mean Corpuscular Hemoglobin 29.4 pg (27-33); Mean Corpuscular Volume 90.5 fl (82-101); Mean Platelet Volume 10.2 fL (7.4-10.4); Monocytes # 0.5 10^3/uL (0.2-0.9); Monocytes % 6.6 %; Neutrophils # 5.34 10^3/uL (1.8-7.7); Neutrophils % 74.5 %; Nucleated Red Blood Cells % 0 %; Platelet Count 217 10^3/cmm (157-399); Red Blood Count 4.93 10^6/uL (3.85-5.65); Red Cell Distribution Width 12.9 % (12.1-15.1); White Blood Count 7.16 10^3/uL (3.29-11.43)
--- NOTE | 2024-07-14 10:04 | ED_ITS ---
HPI - Dizziness 2 General: Chief Complaint: Dizziness Stated Complaint: SOB, dizzy Time Seen by Provider: 07/14/24 09:56 History of Present Illness: HPI Narrative: Patient presents to the ER with complaints of dizziness and shortness of breath going on for some time. Patient does not say he has any chest pain. Patient recently had an echo about 2 weeks ago performed here and is read by Dr. Bonner. Patient states that he got a call from Dr. Bonner's office and he told him to come here because something was abnormal. Dr. Bonner himself did not remember sending him over here for any reason. We will call Dr. Starks's office and see if they sent him over here. Related Data Home Medications Medication Instructions Recorded Confirmed Stool Softener 1 tab PO PRN PRN Constipation 01/16/20 07/14/24 aspirin 81 mg tablet,delayed 81 mg PO DAILY 08/15/22 07/14/24 release lisinopril 30 mg tablet 30 mg PO DAILY 07/14/24 07/14/24 utruzf-[id number]-mqt palm-min 17 1 cap PO DAILY 07/14/24 07/14/24 capsule (Prostate Therapy capsule) rosuvastatin 40 mg tablet 40 mg PO DAILY 07/14/24 07/14/24 Previous Rx's Medication Instructions Recorded Pressure Reducing Cushion #1 ea 08/15/22 Allergies Allergy/AdvReac Type Severity Reaction Status Date / Time tamsulosin Allergy Intermediate ADR-Dizzine Verified 06/02/24 10:14 ss ampicillin Allergy Mild Rash all Verified 06/02/24 10:14 over body Review of Systems 2 General: Reports: 10 or more systems reviewed and unremarkable except in HPI and below PFSH ED 2 PFSH: Medical History (Updated 07/14/24 @ 14:12 by Sam Pacheco DO) Hyperlipidemia HTN (hypertension) Surgical History S/P skin and subcutaneous tissue surgery Skin cancer on nose S/P vasectomy S/P cataract surgery Family History Mother Hypertension Father Cancer COLON CA Social History Smoking and tobacco/nicotine status: never used tobacco/nicotine Alcohol intake: never Substance/Drug Use: never Physical Exam 2 Const: COMMON NORMALS: no acute distress, average body habitus, patient oriented x3, no limitations, healthy appearing, alert and well nourished HENMT: COMMON NORMALS: normocephalic, atraumatic, hearing grossly normal bilaterally, external ears normal, Normal external nose present and moist oral mucous membranes HEAD & SCALP: normocephalic and atraumatic NOSE: Normal external nose present EXTERNAL EAR: Yes external ears normal Neck/C-Spine: COMMON NORMALS: no JVD Chest: COMMONS NORMALS: normal inspection of the chest and normal palpation of entire chest wall Resp: COMMON NORMALS: normal respiratory effort, No retractions, No use of accessory muscles and clear to auscultation bilaterally AUSCULTATION: clear to auscultation bilaterally Cardio: COMMON NORMALS: no JVD, regular rate, regular rhythm, S1 normal heart sound present, S2 normal heart sound present, No gallops present (Cardio), No clicks present (Cardio), No murmurs present (Cardio) and No rub (Cardio) R ATE: regular rate RHYTHM: regular rhythm HEART SOUNDS: S1 normal heart sound present and S2 normal heart sound present GI: COMMON NORMALS: Normal to inspection, nondistended, normoactive bowel sounds present, Soft to palpation, non-tender, No hepatosplenomegaly present and no masses PALPATION: Yes Soft to palpation and Yes No hepatosplenomegaly present Neuro: COMMON NORMALS: patient oriented x3 SENSORIUM/ORIENTATION: Yes alert Course 2 Vital Signs: Vital signs: Vital Signs Temperature 97.8 F 07/14/24 09:34 Pulse Rate 91 07/14/24 13:30 Respiratory Rate 16 07/14/24 11:00 Blood Pressure 160/89 07/14/24 13:30 Pulse Oximetry 94 07/14/24 13:30 Oxygen Delivery Me thod Room Air 07/14/24 13:30 MDM - Dizziness Medical Decision Making Lab work included CBC CMP cardiac enzymes EKG chest x-ray all essentially benign urinalysis benign these results was discussed with the patient and his son. Patient will be discharged from the ER. Medical Records I reviewed the patient's medical records. Lab Data I reviewed the patient's lab results. 07/14/24 09:54 07/14/24 09:54 Radiology Impressions Chest X-Ray 07/14/24 09:25 IMPRESSION: No acute findings. Laboratory Results WBC 7.16 10^3/uL (3.29-11.43) 07/14/24 09:54 RBC 4.93 10^6/uL (3.85-5.65) 07/14/24 09:54 Hgb 14.50 g/dL (11.27-16.99) 07/14/24 09:54 Hct 44.6 % (37-53) 07/14/24 09:54 MCV 90.5 fl (82-101) 07/14/24 09:54 MCH 29.4 pg (27-33) 07/14/24 09:54 MCHC 32.5 g/dL (30-55) 07/14/24 09:54 RDW 12.9 % (12.1-15.1) 07/14/24 09:54 Plt Count 217 10^3/cmm (157-399) 07/14/24 09:54 MPV 10.2 fL (7.4-10.4) 07/14/24 09:54 Neut % (Auto) 74.5 % 07/14/24 09:54 Lymph % (Auto) 17.0 % 07/14/24 09:54 [place] % (Auto) 6.6 % 07/14/24 09:54 Eos % (Auto) 1.3 % 07/14/24 09:54 Baso % (Auto) 0.3 % 07/14/24 09:54 Neut # (Auto) 5.34 10^3/uL (1.8-7.7) 07/14/24 09:54 Lymph # (Auto) 1.2 10^3/uL (0.8-4.8) 07/14/24 09:54 [place] # (Auto) 0.5 10^3/uL (0.2-0.9) 07/14/24 09:54 Eos # (Auto) 0.1 10^3/uL (0.0-0.8) 07/14/24 09:54 Baso # (Auto) 0.0 10^3/uL (0.0-0.1) 07/14/24 09:54 Nucleated RBC % (auto) 0 % 07/14/24 09:54 Nucleated RBCs # 0.0 /100WBC 07/14/24 09:54 PT 12.30 SECONDS (12.1-14.9) 07/14/24 09:54 INR 0.89 (0.8-1.2) 07/14/24 09:54 Sodium 140 mmol/L (136-145) 07/14/24 09:54 Potassium 4.0 mmol/L (3.5-5.1) 07/14/24 09:54 Chloride 105 mmol/L (98-107) 07/14/24 09:54 Carbon Dioxide 23 mmol/L (22-29) 07/14/24 09:54 Anion Gap 16.0 (5-19) 07/14/24 09:54 BUN 22 mg/dL (8-23) 07/14/24 09:54 Creatinine 1.3 mg/dL (0.7-1.2) H 07/14/24 09:54 GFR Calculation Not Reportable 07/14/24 09:54 Glucose 123 mg/dL (65-115) H 07/14/24 09:54 Calculated Osmolality 295 mOsm/kg (285-295) 07/14/24 09:54 Calcium 8.5 mg/dL (8.5-10.5) 07/14/24 09:54 Magnesium 2.1 mg/dL (1.7-2.3) 07/14/24 09:54 Total Bilirubin 0.3 mg/dL (0.15-1.2) 07/14/24 09:54 AST 18 U/L (0-40) 07/14/24 09:54 ALT 16 U/L (0-41) 07/14/24 09:54 Alkaline Phosphatase 79 U/L (40-130) 07/14/24 09:54 Creatine Kinase 42 U/L (39-308) 07/14/24 09:54 Troponin T Baseline 13 ng/L (0-15) 07/14/24 09:54 Troponin T 120 Minute 12.52 ng/L (0-15) 07/14/24 12:40 Delta Troponin T -0.48 ABS# (0-10) L 07/14/24 12:40 NT-Pro-B Natriuret Pep 442 pg/mL (0-450) 07/14/24 09:54 Total Protein 7.2 g/dL (6.6-8.7) 07/14/24 09:54 Albumin 4.3 g/dL (3.5-5.2) 07/14/24 09:54 Globulin 2.9 g/dL (1.3-4.6) 07/14/24 09:54 Urine Color Yellow (Yellow) 07/14/24 10:49 Urine Appearance Clear (CLEAR) 07/14/24 10:49 Urine pH 5.0 (5-7) 07/14/24 10:49 Ur Specific [place] 1.021 (1.005-1.030) 07/14/24 10:49 Urine Protein Trace (Negative) A 07/14/24 10:49 Urine Glucose (UA) Negative (Normal) 07/14/24 10:49 Urine Ketones Negative (Negative) 07/14/24 10:49 Urine Blood Negative (Negative) 07/14/24 10:49 Urine Nitrate Negative (Negative) 07/14/24 10:49 Urine Bilirubin Negative (Negative) 07/14/24 10:49 Urine Urobilinogen 1.0 mg/dL (Negative) 07/14/24 10:49 Ur Leukocyte Esterase Negative (Negative) 07/14/24 10:49 Urine RBC 0-2 /hpf (0-2) 07/14/24 10:49 Urine WBC 0-5 /hpf (0-5) 07/14/24 10:49 Ur Squamous Epith Cells 0-5 /hpf (0-5) 07/14/24 10:49 Amorphous Sediment Not Reportable 07/14/24 10:49 Urine Bacteria None seen /hpf (NONE) 07/14/24 10:49 Hyaline Casts 2.87 /lpf 07/14/24 10:49 All radiology interpretation(s) finalized by discharge Discharge Plan Discharge Patient Disposition: Home Clinical Impression: Dizziness Condition: Stable Prescriptions: No Action aspirin 81 mg tablet,delayed release (DR/EC) 81 mg PO DAILY (DME) Pressure Reducing Cushion See Rx Instructions .Route .MEDSUPPLY Qty: 1 0RF Rx Instructions: As directed Stool Softener 1 tab PO PRN PRN (Reason: Constipation) lisinopril 30 mg tablet 30 mg PO DAILY rosuvastatin 40 mg tablet 40 mg PO DAILY Prostate Therapy Capsule 1 cap PO DAILY Discharge Orders: Discharge ED (Routine); Ordered 07/14/24 Ordered By: Sam Pacheco Referrals: Mamta Nascimento MD [Primary Care Provider] - 1 week Patient Instructions: Dizziness (ED), Lightheadedness (ED) Activity Restrictions/Additional Instructions: Thank you for choosing [facility] for your healthcare needs today. Please realize that you were seen in the emergency department and that we are providing you with an emergency medical screening exam and this may not be a complete and all exclusive of all testing and/or medical workup we may need to determine your element or severity of your illness. It is very important that you follow-up as instructed with your primary care provider or specialist for the additional evaluation and to discuss your medical treatment plan. You may return to the emergency department should you have concerns or if your condition changes or worsens in any way. Coding Level of Care Code ED Wood Planer for Honey Grigsby
[2024-07-14 10:18] LABS: INR 0.89 (0.8-1.2)
[2024-07-14 10:23] LABS: Troponin(5th) Baseline 13 ng/L (0-15)
[2024-07-14 10:39] LABS: Alanine Aminotransferase 16 U/L (0-41); Albumin Level 4.3 g/dL (3.5-5.2); Alkaline Phosphatase 79 U/L (40-130); Aspartate Amino Transferase 18 U/L (0-40); Blood Urea Nitrogen 22 mg/dL (8-23); Calcium 8.5 mg/dL (8.5-10.5); Carbon Dioxide 23 mmol/L (22-29); Chloride 105 mmol/L (98-107); Creatinine Clr Calc Pharmacy 43.0307; Globulin 2.9 g/dL (1.3-4.6); Glucose 123 mg/dL (65-115); NT Pro B Type Natriuretic Pept 442 pg/mL (0-450); Osmolality Calculated 295 mOsm/kg (285-295); Sodium 140 mmol/L (136-145); Total Bilirubin 0.3 mg/dL (0.15-1.2); Total Protein 7.2 g/dL (6.6-8.7)
[2024-07-14 10:57] LABS: Creatine Phosphokinase 42 U/L (39-308); Magnesium 2.1 mg/dL (1.7-2.3)
[2024-07-14 11:00] VITALS: BP 143/86; PULSE 95; RESP 16; O2SAT 95
[2024-07-14 11:00] LABS: Bilirubin Urine Negative (Negative); Blood Urine Negative (Negative); Glucose Urine UA Negative (Normal); Ketones Urine Negative (Negative); Leukocyte Esterase Urine Negative (Negative); Nitrate Urine Negative (Negative); Protein Urine Trace (Negative); Specific Gravity, Urine 1.021 (1.005-1.030); Urine Appearance Clear (CLEAR); Urine Color Yellow (Yellow)
[2024-07-14 11:05] LABS: Add Urine Microscopic? YES; Bacteria Urine None Seen /hpf; Hyaline Casts Urine 2.87 /lpf; RBC Urine 0-2 /hpf (0-2); Squamous Epithelial Cell Urine 0-5 /hpf (0-5); WBC Urine 0-5 /hpf (0-5)
--- NOTE | 2024-07-14 11:25 | ECG_ITS ---
[facility] Test Date: 2024-07-14 Pat Name: Law Frederick Department: Room: Gender: Male Volunteer Manager: : 1940 Requested By: Viv Grace Order Number: [id number] Jose Roberto MD: Jia Bonner M.D. Measurements Intervals [place] Rate: 94 P: 49 RI: 159 QRS: -35 QRSD: 137 T: 6 QT: 394 QTc: 494 Interpretive Statements SINUS RHYTHM LEFT AXIS DEVIATION [QRS AXIS < -30] RIGHT BUNDLE BRANCH BLOCK [120+ ms QRS DURATION, UPRIGHT V1, 40+ ms S IN I/aVL/V4/V5/V6] LEFT VENTRICULAR HYPERTROPHY AND ST-T CHANGE [VOLTAGE CRITERIA PLUS ST/T ABNORMALITY] Compared to ECG 07/14/2024 09:30:21 Sinus tachycardia no longer present ST (T wave) deviation still present Electronically Signed On 07-16-2024 16:12:43 SENIOR ONLINE MARKETING MANAGER by Jia Bonner M.D. [email or web address]
[2024-07-14 12:30] VITALS: BP 160/91; PULSE 95; O2SAT 95
[2024-07-14 13:19] LABS: Troponin 5 2HR 12.52 ng/L (0-15)
[2024-07-14 13:23] LABS: Troponin 5 2HR Delta -0.48 ABS# (0-10)
[2024-07-14 13:30] VITALS: BP 160/89; PULSE 91; O2SAT 94
[2024-07-14 14:32] VITALS: BP 136/99; PULSE 99; O2SAT 95
== END 2024-07-14 14:33 | disposition home or self-care (01) ==
PROVIDERS: Emergency Medicine; Emergency Provider Emergency Medicine; PCP Internal Medicine
DX: R42 Dizziness and giddiness (principal); Z79.82 Long term (current) use of aspirin; I10 Essential (primary) hypertension; E78.5 Hyperlipidemia, unspecified
CPT/HCPCS: 36415; 71045; 80053; 81001; 82550; 83735; 83880; 84484; 85025; 85610; 93005; 99285

== ENCOUNTER → 2024-09-19 11:38 | Outpatient (BNVA) | payer MEDICARE, SELFPAY | PROVIDERS: PCP Internal Medicine; Visit Provider Nurse Practitioner Family | DX: R94.31 Abnormal electrocardiogram [ECG] [EKG] (principal); R94.39 Abnormal result of other cardiovascular function study; I10 Essential (primary) hypertension; E78.5 Hyperlipidemia, unspecified; R00.2 Palpitations | CPT/HCPCS: 99213 ==

== ENCOUNTER 2025-07-04 11:05 | Emergency (ER) | payer MEDICARE, SELFPAY ==
--- NOTE | 2025-07-04 11:05 | XRR_ITS ---
PROCEDURE INFORMATION: Exam: XR Chest Exam date and time: 07/04/2025 11:26 AM Age: 85 years old Clinical indication: Other: HTN TECHNIQUE: Imaging protocol: Radiologic exam of the chest. Views: 1 view. COMPARISON: 1. CR XR chest 1V portable [id number] 07/14/2024 9:38 AM 2. Atherosclerotic aortic calcifications. FINDINGS: Lungs: Calcified granuloma in the right lower lung. No consolidation. Pleural spaces: Unremarkable. No pleural effusion. No pneumothorax. Heart/Mediastinum: Unremarkable. No cardiomegaly. Vasculature: Atherosclerotic aortic calcifications. Bones/joints: Unremarkable. XR/XR chest 1V portable [id number] IMPRESSION: No acute findings.
--- NOTE | 2025-07-04 11:05 | ECG_ITS ---
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 Measurements Intervals [place] Rate: 98 P: 50 AK: 128 QRS: -25 QRSD: 140 T: 39 QT: 402 QTc: 515 Interpretive Statements SINUS RHYTHM RIGHT BUNDLE BRANCH BLOCK [120+ ms QRS DURATION, UPRIGHT V1, 40+ ms S IN I/aVL/V4/V5/V6] LEFT VENTRICULAR HYPERTROPHY AND ST-T CHANGE [VOLTAGE CRITERIA PLUS ST/T ABNORMALITY] POSSIBLE SEPTAL MYOCARDIAL INFARCTION , PROBABLY OLD [30 ms Q WAVE IN V1/V2] Compared to ECG 07/14/2024 11:22:05 Myocardial infarct finding now present Left-axis deviation no longer present ST (T wave) deviation still present Electronically Signed On 07-04-2025 21:53:45 TEST EQUIPMENT MECHANIC by Jia Bonner M.D. [email or web address] [id number]
[2025-07-04 11:06] VITALS: BP 183/104; PULSE 99; RESP 17; TEMP 36.7; O2SAT 95; BMI 21.5
--- NOTE | 2025-07-04 11:18 | W.ED.DIZZY ---
HPI - Dizziness General: Chief Complaint: Dizziness Stated Complaint: High BP History of Present Illness: HPI Narrative: 85-year-old man with a history of hypertension and hyperlipidemia who presents to the emergency room with high blood pressure. He has been relatively asymptomatic but says he has had some lightheadedness at times. He says he checks it every day and over the last few days it has been up quite a bit. Today his systolic was over 200. No chest pain. No altered mental status. No headache. Today he had seen his PCP and was sent here by ambulance because he was diaphoretic. Related Data Home Medications ?Medication ?Instructions ?Recorded ?Confirmed aspirin 81 mg tablet,delayed 81 mg PO DAILY 08/15/22 07/04/25 release lisinopril 30 mg tablet 30 mg PO DAILY 07/14/24 07/04/25 [id number] palm-min 17 1 cap PO DAILY 07/14/24 07/04/25 capsule (Prostate Therapy capsule) rosuvastatin 40 mg tablet 40 mg PO DAILY 07/14/24 07/04/25 Previous Rx's ?Medication ?Instructions ?Recorded Pressure Reducing Cushion #1 ea 08/15/22 clonidine HCl 0.1 mg tablet 0.1 mg PO DAILY PRN hypertension 07/04/25 #20 tabs metoprolol tartrate 25 mg tablet 12.5 mg (1/2 x 25 mg) PO BID #30 07/04/25 tabs Allergies Allergy/AdvReac Type Severity Reaction Status Date / Time tamsulosin Allergy Intermediate ADR-Dizzine Verified 09/19/24 12:40 ss ampicillin Allergy Mild Rash all Verified 09/19/24 12:40 over body Review of Systems Narrative: Constitutional symptoms: Negative except as documented in HPI. Skin symptoms: Negative except as documented in HPI. Eye symptoms: Negative except as documented in HPI. ENMT symptoms: Negative except as documented in HPI. Respiratory symptoms: Negative except as documented in HPI. Cardiovascular symptoms: Negative except as documented in HPI. Gastrointestinal symptoms: Negative except as documented in HPI. Genitourinary symptoms: Negative except as documented in HPI. Musculoskeletal symptoms: Negative except as documented in HPI. Neurologic symptoms: Negative except as documented in HPI. Psychiatric symptoms: Negative except as documented in HPI. Endocrine symptoms: Negative except as documented in HPI. [facility] ED PFS: Medical History (Updated 11/04/25 @ 12:47 by Belkys Barragan MD) Hyperlipidemia HTN (hypertension) Surgical History S/P skin and subcutaneous tissue surgery Skin cancer on nose S/P vasectomy S/P cataract surgery Family History Mother Hypertension Father Cancer COLON CA Social History Smoking and tobacco/nicotine status: never used tobacco/nicotine Alcohol intake: never Substance/Drug Use: never Physical Exam Narrative: EXAM NARRATIVE: General: Alert, no acute distress. Skin: Warm, dry. Head: Normocephalic, atraumatic. Neck: Supple, trachea midline. Eye: Extraocular movements are intact. Ears, nose, mouth and throat: mucosa moist. Cardiovascular: Regular, Normal peripheral perfusion. Respiratory: Lungs are clear to auscultation, respirations are non-labored, breath sounds are equal, Symmetrical chest wall expansion. Gastrointestinal: Soft, Nontender, Non distended Musculoskeletal: Normal ROM, no deformity. Neurological: Alert and oriented, No focal neurological deficit observed. Psychiatric: Cooperative, appropriate mood & affect. Course Vital Signs: Vital signs: Vital Signs Temperature 98.0 F 07/04/25 11:06 Pulse Rate 97 07/04/25 12:45 Respiratory Rate 17 07/04/25 11:06 Blood Pressure 181/106 07/04/25 12:45 Pulse Oximetry 97 07/04/25 12:45 Oxygen Delivery Me thod Room Air 07/04/25 12:45 MDM - Dizziness Medical Decision Making Medical decision making: Patient's reason for coming to the emergency room: Hypertension Social determinants: Patient is retired I reviewed the patient's medical record. Patient has history of hypertension and hyperlipidemia. I reviewed the patient's current home meds Patient currently on lisinopril and rosuvastatin. He has concern that his medications are not strong enough. Alternate historians: None Differential diagnosis including but not limited to and based on the above HPI, review of systems and physical exam: Patient presents with hypertension: Essential hypertension. Stroke. acute coronary syndrome. kidney failure. congestive heart failure. anxiety. Orders placed to evaluate differential diagnosis based on the above differential, HPI and physical exam EKG: Time 1113. Rate 98. Normal sinus rhythm, nonspecific ST changes, no ectopy, right bundle branch block, This was reviewed and interpreted by myself the ER physician at 11:20 AM Repeat EKG: Time 1225. Rate 97. Normal sinus rhythm, nonspecific ST changes, no ectopy, right bundle branch block, This was reviewed and interpreted by myself the ER physician at 1230. No changes from EKG done previously today in the emergency room. Chest x-ray: No acute process. No infiltrate. No pneumothorax. This was reviewed and interpreted by myself the emergency room physician. I also reviewed the radiology report. Lab Review: Laboratory results were reviewed and interpreted by myself the emergency room physician. No leukocytosis. No anemia. Stable chronic renal insufficiency with a creatinine of 1.3. Troponin just on the cusp of being elevated at 16 with no delta on repeat. Assessment of risk: Level of risk: Moderate. Advanced age. Hospitalization considerations: Patient has had no chest pain and blood pressure response some to clonidine. He is asymptomatic. He will follow-up with his PCP as soon as possible. Reexamination: Patient remained stable. No increased work of breathing. No altered mental status. No focal motor deficits. Assessment and plan: Hypertension Chronic kidney disease ?Clonidine and labetalol. I am going to go ahead and start a beta-harriet in addition to his lisinopril. I discussed that his PCP may want to change this. ?Kidney function stable from previous measurements - Discharged home - Discussed plan with patient. Answered any questions. - Evaluation and treatment of this problem were appropriate in the emergency setting. Lab Data 07/04/25 11:00 07/04/25 11:00 Radiology Impressions Chest X-Ray 07/04/25 11:05 IMPRESSION: No acute findings. Laboratory Results WBC 7.45 10^3/uL (3.29-11.43) 07/04/25 11:00 RBC 4.61 10^6/uL (3.85-5.65) 07/04/25 11:00 Hgb 13.40 g/dL (11.27-16.99) 07/04/25 11:00 Hct 42.2 % (37-53) 07/04/25 11:00 MCV 91.5 fl (82-101) 07/04/25 11:00 MCH 29.1 pg (27-33) 07/04/25 11:00 MCHC 31.8 g/dL (30-55) 07/04/25 11:00 RDW 13.2 % (12.1-15.1) 07/04/25 11:00 Plt Count 242 10^3/cmm (157-399) 07/04/25 11:00 MPV 10.6 fL (7.4-10.4) H 07/04/25 11:00 Neut % (Auto) 70.0 % 07/04/25 11:00 Lymph % (Auto) 18.3 % 07/04/25 11:00 [place] % (Auto) 8.6 % 07/04/25 11:00 Eos % (Auto) 2.4 % 07/04/25 11:00 Baso % (Auto) 0.3 % 07/04/25 11:00 Neut # (Auto) 5.22 10^3/uL (1.8-7.7) 07/04/25 11:00 Lymph # (Auto) 1.4 10^3/uL (0.8-4.8) 07/04/25 11:00 [place] # (Auto) 0.6 10^3/uL (0.2-0.9) 07/04/25 11:00 Eos # (Auto) 0.2 10^3/uL (0.0-0.8) 07/04/25 11:00 Baso # (Auto) 0.0 10^3/uL (0.0-0.1) 07/04/25 11:00 Nucleated RBC % (auto) 0 % 07/04/25 11:00 Nucleated RBCs # 0.0 /100WBC 07/04/25 11:00 Sodium 144 mmol/L (136-145) 07/04/25 11:00 Potassium 4.1 mmol/L (3.5-5.1) 07/04/25 11:00 Chloride 109 mmol/L (98-107) H 07/04/25 11:00 Carbon Dioxide 24 mmol/L (22-29) 07/04/25 11:00 Anion Gap 15.1 (5-19) 07/04/25 11:00 BUN 21 mg/dL (8-23) 07/04/25 11:00 Creatinine 1.3 mg/dL (0.7-1.2) H 07/04/25 11:00 GFR Calculation Not Reportable 07/04/25 11:00 Glucose 93 mg/dL (65-115) 07/04/25 11:00 Calculated Osmolality 301 mOsm/kg (285-295) H 07/04/25 11:00 Calcium 9.7 mg/dL (8.5-10.5) 07/04/25 11:00 Total Bilirubin 0.3 mg/dL (0.15-1.2) 07/04/25 11:00 AST 15 U/L (0-40) 07/04/25 11:00 ALT 15 U/L (0-41) 07/04/25 11:00 Alkaline Phosphatase 90 U/L (40-130) 07/04/25 11:00 Troponin T Baseline 17 ng/L (0-15) H 07/04/25 11:00 Troponin T 120 Minute 16.01 ng/L (0-15) H 07/04/25 12:30 Delta Troponin T -0.99 ABS# (0-10) L 07/04/25 12:30 NT-Pro-B Natriuret Pep 775 pg/mL (0-450) H 07/04/25 11:00 Total Protein 7.2 g/dL (6.6-8.7) 07/04/25 11:00 Albumin 4.5 g/dL (3.5-5.2) 07/04/25 11:00 Globulin 2.7 g/dL (1.3-4.6) 07/04/25 11:00 All radiology interpretation(s) finalized by discharge Discharge Plan Discharge Patient Disposition: Home Clinical Impression: Accelerated hypertension, Chronic kidney disease Condition: Stable Prescriptions: New clonidine HCl 0.1 mg tablet 0.1 mg PO DAILY PRN (Reason: hypertension) Qty: 20 0RF Rx Instructions: For Systolic >185 diastolic >100. If you are needing this more than once a day you need to follow with your primary care provider metoprolol tartrate 25 mg tablet 12.5 mg PO BID Qty: 30 1RF No Action aspirin 81 mg tablet,delayed release (DR/EC) 81 mg PO DAILY (DME) Pressure Reducing Cushion See Rx Instructions .Route .MEDSUPPLY Qty: 1 0RF Rx Instructions: As directed lisinopril 30 mg tablet 30 mg PO DAILY rosuvastatin 40 mg tablet 40 mg PO DAILY Prostate Therapy Capsule 1 cap PO DAILY Discharge Orders: Discharge ED (Routine); Ordered 07/04/25 Ordered By: Belkys Barragan Referrals: Mamta Nascimento MD [Primary Care Provider, Internal Medicine] Discharge Diet: Usual diet Discharge Activity: Increase activity as tolerated Patient Instructions: Hypertension (ED), Opioid Safety, Pain Management, Patient Portal & Fer Instructions Activity Restrictions/Additional Instructions: Thank you for choosing [facility] for your healthcare needs today. You have been screened and evaluated and felt safe for discharge. Health conditions do change or evolve sometimes and as such it is important that you follow up with your Primary Doctor to be re checked, 3-5 days is a general good time frame for follow up. You are always welcome to return to the ED for re assessment if your symptoms are worsening or you have new concerns Print Language: Gabonese Coding Level of Care Code ED Roustabout Hand for Honey Grigsby
--- OUTSIDE RECORDS SUMMARY | 2025-07-04 11:21 | XMS_ITS | Clinical Summary ---
Author Organization [facility] Address [address] [place] [address] Care Team Providers Care Pharmacoepidemiologist Name Role Phone Unavailable Primary Care Provider Unavailabl e Allergies Active Allergy Reactions Criticality Noted Date Comments Sulfamethoxazole-Trimethoprim Itching Medium 2011 Medications No known medications Active Problems Problem Noted Date Diagnosed Date Hyperlipidemia 07/29/2012 Hypertension 07/29/2012 Family History Medical History Relation Name Comments Cancer Father colon cancer at age 85 Relation Name Status Comments Father Social History Tobacco Use Types Packs/Day Years Used Date Smoking Tobacco: Never Smokeless Tobacco: Never Alcohol Use Standard Drinks/Week Comments No 0 (1 standard drink = 0.6 oz pur e alcohol) Sex and Gender Information Value Date Recorded Sex Assigned at Not on file Legal 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 Gender Identity Not on file Sexual Orientation Not on file Last Filed Vital Signs Vital Sign Reading Time Taken Comments Blood Pressure 132/79 08/30/2019 9:18 AM SEMI DRIVER Pulse 89 08/30/2019 9:18 AM SEMI DRIVER Temperature 36.4 C (97.5 F) 08/30/2019 9:18 AM SEMI DRIVER Respiratory Rate 18 08/30/2018 1:39 PM SEMI DRIVER Oxygen Saturation 94% 08/30/2019 9:18 AM SEMI DRIVER Inhaled Oxygen Concentration - - Weight 71.5 kg (157 lb 9.6 oz) 08/30/2019 9:18 A M SEMI DRIVER Height 177.8 cm (5' 10 ) 08/30/2019 9:18 AM SEMI DRIVER Body Mass Index 22.61 08/30/2019 9:18 AM SEMI DRIVER Plan of Treatment Health Maintenance Due Date Last Done Comments DTAP/TDAP/TD VACCINES (1 - Tdap) 01/18/1959 PNEUMOCOCCAL VACCINE 50+ YEA RS (1 of 1 - PCV) 01/18/1990 ZOSTER VACCINE (1 of 2) 01/18/1990 RSV VACCINE (60+ or ) (1 - 1-dose 75+ series) 01/18/2015 INFLUENZA VACCINE (#1) 2025 08/30/2018 COLORECTAL SCREENING Discontinued 01/03/2015, 11/18/19 08 Colorectal Cancer Screening Discontinued FIT-DNA Q 3 years Discontinued FIT/FOBT Q 1 year Discontinued Flex Sig/CT Colonography Q [address] [place] [address] [employer] [id number] HMO Advance Directives For more information, please contact: [phone] * Full Code (Latest Code Status on File) Date Activated Date Inactivated Comments 01/03/2015 9:41 AM 01/03/2015 12:31 PM
--- OUTSIDE RECORDS SUMMARY | 2025-07-04 11:21 | XMS_ITS | Clinical Summary ---
Author Organization [facility] Address [address] 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:40 AM DIRECTOR OF SCOUT WORK Gender Identity Not on file Sexual Orientation Not on file Last Filed Vital Signs Vital Sign Reading Time Taken Comments Blood Pressure 132/79 08/30/2019 9:18 AM DIRECTOR OF SCOUT WORK Pulse 89 08/30/2019 9:18 AM DIRECTOR OF SCOUT WORK Temperature 36.4 C (97.5 F) 08/30/2019 9:18 AM DIRECTOR OF SCOUT WORK Respiratory Rate 18 08/30/2018 1:39 PM DIRECTOR OF SCOUT WORK Oxygen Saturation - - Inhaled Oxygen Concentration - - Weight 71.5 kg (157 lb 9.6 oz) 08/30/2019 9:18 A M DIRECTOR OF SCOUT WORK Height 177.8 cm (5' 10 ) 08/30/2019 9:18 AM DIRECTOR OF SCOUT WORK Body Mass Index 22.61 08/30/2019 9:18 AM DIRECTOR OF SCOUT WORK Plan of Treatment Health Maintenance Due Date Last Done Comments DTAP/TDAP/TD VACCINES (1 - Tdap) 01/18/1959 PNEUMOCOCCAL VACCINE 50+ YEARS (1 of 1 - PCV) 01/18/19 90 ZOSTER VACCINE (1 of 2) 01/18/1990 RSV VACCINE (60+ or ) (1 - 1-dose 75+ series) 01/18/2015 INFLUENZA VACCINE (#1) 2025 08/30/2018 COLORECTAL SCREENING Discontinued 01/03/2015 Colorectal Cancer Screening Discontinued FIT-DNA Q 3 years Discontinued FIT/FOBT Q 1 year Discontinued Flex Sig/CT Colonography Q 5 years Discontinued
[2025-07-04 11:38] LABS: Hematocrit 42.2 % (37-53); Hemoglobin 13.40 g/dL (11.27-16.99); Mean Corpuscular HGB Conc 31.8 g/dL (30-55); Mean Corpuscular Hemoglobin 29.1 pg (27-33); Mean Corpuscular Volume 91.5 fl (82-101); Nucleated Red Blood Cells % 0 %; Platelet Count 242 10^3/cmm (157-399); Red Blood Count 4.61 10^6/uL (3.85-5.65); White Blood Count 7.45 10^3/uL (3.29-11.43)
[2025-07-04 11:45] VITALS: BP 172/95; PULSE 98; O2SAT 96
[2025-07-04 12:06] LABS: Troponin(5th) Baseline 17 ng/L (0-15)
[2025-07-04 12:17] VITALS: BP 171/104
[2025-07-04 12:17] LABS: Alanine Aminotransferase 15 U/L (0-41); Albumin Level 4.5 g/dL (3.5-5.2); Alkaline Phosphatase 90 U/L (40-130); Anion Gap 15.1 (5-19); Aspartate Amino Transferase 15 U/L (0-40); Blood Urea Nitrogen 21 mg/dL (8-23); Calcium 9.7 mg/dL (8.5-10.5); Carbon Dioxide 24 mmol/L (22-29); Chloride 109 mmol/L (98-107); Creatinine Clr Calc Pharmacy 41.7293; Globulin 2.7 g/dL (1.3-4.6); Glucose 93 mg/dL (65-115); NT Pro B Type Natriuretic Pept 775 pg/mL (0-450); Osmolality Calculated 301 mOsm/kg (285-295); Potassium 4.1 mmol/L (3.5-5.1); Sodium 144 mmol/L (136-145); Total Protein 7.2 g/dL (6.6-8.7)
--- NOTE | 2025-07-04 12:25 | ECG_ITS ---
[facility] Test Date: 2025-07-04 Pat Name: Law Frederick Department: Room: Gender: Male Demand Inspector: : 1940 Requested By: Belkys Vasques Order Number: [id number] Cid MD: Jia Bonner M.D. Measurements Intervals [place] Rate: 97 P: 52 VT: 132 QRS: -8 QRSD: 138 T: 40 QT: 392 QTc: 499 Interpretive Statements SINUS RHYTHM RIGHT BUNDLE BRANCH BLOCK [120+ ms QRS DURATION, UPRIGHT V1, 40+ ms S IN I/aVL/V4/V5/V6] MINIMAL VOLTAGE CRITERIA FOR LVH, CONSIDER NORMAL VARIANT [MEETS CRITERIA IN ONE OF: R(aVL), S(V1), R(V5), R(V5/V6)+S(V1)] POSSIBLE SEPTAL MYOCARDIAL INFARCTION , PROBABLY OLD [30 ms Q WAVE IN V1/V2] Compared to ECG 07/04/2025 11:13:18 ST (T wave) deviation no longer present Myocardial infarct finding still present Electronically Signed On 07-04-2025 22:17:55 ASSOCIATE PROFESSOR OF THEOLOGY by Jia Bonner M.D. [email or web address]
[2025-07-04 12:45] VITALS: BP 181/106; PULSE 97; O2SAT 97
[2025-07-04 12:54] LABS: Troponin 5 2HR 16.01 ng/L (0-15)
[2025-07-04 12:55] LABS: Troponin 5 2HR Delta -0.99 ABS# (0-10)
[2025-07-04 13:15] VITALS: BP 158/110; PULSE 91; O2SAT 93
[2025-07-04] MEDS: labetalol 5 mg/mL SDV 20mL 20 MG IVP (13:16)
[2025-07-04 13:31] VITALS: BP 148/89; PULSE 89; O2SAT 97
== END 2025-07-04 13:36 | disposition home or self-care (01) ==
PROVIDERS: Emergency Provider Emergency Medicine; PCP Internal Medicine
DX: I12.9 Hypertensive chronic kidney disease with stage 1 through stage 4 chronic kidney disease, or unspecified chronic kidney disease (principal); N18.9 Chronic kidney disease, unspecified; Z79.82 Long term (current) use of aspirin; E78.5 Hyperlipidemia, unspecified; I10 Essential (primary) hypertension
CPT/HCPCS: 71045; 80053; 83880; 84484; 85025; 93005; 96374; 99285; J3490; J9999

== ENCOUNTER → 2025-08-01 10:36 | Outpatient (BNVA) | payer MEDICARE, SELFPAY | PROVIDERS: PCP Internal Medicine; Visit Provider Dermatology | DX: L81.4 Other melanin hyperpigmentation (principal); L57.8 Other skin changes due to chronic exposure to nonionizing radiation; D22.5 Melanocytic nevi of trunk; L82.1 Other seborrheic keratosis; Z08 Encounter for follow-up examination after completed treatment for malignant neoplasm; Z85.828 Personal history of other malignant neoplasm of skin; D48.5 Neoplasm of uncertain behavior of skin; L57.0 Actinic keratosis | CPT/HCPCS: 11102; 17000; 99203 ==